=== PATIENT | female | born 2000 | race Hispanic/Latino ===

== ENCOUNTER 2023-09-21 19:40 | Emergency (ER) | payer MEDICAID ==
[~2023-09-21] VITALS: Ht 167.6 cm; Wt 68.0 kg
[2023-09-21 20:56] LABS: BASOPHILS # (AUTO) 0.03 K/uL (0.00-0.20); BASOPHILS % (AUTO) 0.2 % (0.0-5.0); EOSINOPHILS # (AUTO) 0.12 K/uL (0.00-0.70); EOSINOPHILS % (AUTO) 0.7 % (0.0-8.0); HEMATOCRIT 40.9 % (36-48); LYMPHOCYTES # (AUTO) 0.6 K/uL (1.0-4.8); LYMPHOCYTES % (AUTO) 3.6 % (21.0-51.0); MEAN CORPUSCULAR HEMOGLOBIN 30.6 pg (27.0-33.0); MEAN CORPUSCULAR HGB CONC 33.5 g/dL (32.0-36.0); MEAN CORPUSCULAR VOLUME 91.3 fL (80-100); MONOCYTES # (AUTO) 0.3 K/uL (0.1-1.0); MONOCYTES % (AUTO) 1.7 % (3.0-13.0); NEUTROPHILS # (AUTO) 16.7 K/uL (1.8-7.7); NEUTROPHILS % (AUTO) 93.2 % (40.0-77.0); PLATELET COUNT (AUTO) 337 K/uL (130-400); RED BLOOD CELL COUNT(AUTO) 4.48 MIL/uL (4.00-5.50); RED CELL DISTRIBUTION WIDTH 12.6 % (11.0-15.5); WHITE BLOOD COUNT (AUTO) 17.9 K/uL (4.8-10.8)
[2023-09-21 20:59] LABS: APPEARANCE,URINE CLEAR (CLEAR); BILIRUBIN,URINE NEGATIVE (NEGATIVE); COLOR,URINE LIGHT-YELLOW (YELLOW); GLUCOSE, URINE (UA) NEGATIVE (NEGATIVE); KETONES,URINE NEGATIVE (NEGATIVE); LEUKOCYTE ESTERASE ,URINE NEGATIVE Leu/uL (NEGATIVE); NITRATE,URINE NEGATIVE (NEGATIVE); OCCULT BLOOD,URINE NEGATIVE (NEGATIVE); PH,URINE 7.5 (5.0-8.0); PROTEIN,URINE NEGATIVE (NEGATIVE); UROBILINOGEN,URINE 0.2 mg/dL (0.2-1.0)
[2023-09-21 21:04] LABS: CREATININE 0.8 mg/dL (0.5-1.0); POTASSIUM 3.4 mmol/L (3.5-5.1)
[2023-09-21 21:04] LABS: ADD UA MICROSCOPIC NO
[2023-09-21 21:13] LABS: WBC MORPHOLOGY CONSISTENT W/DIFF
[2023-09-21 21:14] LABS: BILIRUBIN,TOTAL 1.5 mg/dL (0.2-1.0)
[2023-09-21] MEDS: MORPHINE 2 MG SYG IM ONE (21:14)
[2023-09-21] MEDS: ONDANSETRON 4MG INJ IVP ONE (22:31)
[2023-09-21] MEDS: MORPHINE 2 MG SYG IVP ONE (22:31)
[2023-09-21] MEDS ORDERED: IOHEXOL 350 MG/ML 100ML INFUS..BTL IV ONE (22:33)
[2023-09-21] MEDS ORDERED: IBUP-1493 PO (23:46)
[2023-09-21] MEDS ORDERED: DICY20TA2 PO (23:46)
[2023-09-21] MEDS ORDERED: ONDA-104 PO (23:47)
[2023-09-21] MEDS ORDERED: AMOX1TAB16 PO (23:50)
[2023-09-22] MEDS ORDERED: ACETAMINOPHEN 325 MG TAB PO ONE
[2023-09-22 00:55] VITALS: BP 104/64; PULSE 80; RESP 18; O2SAT 98
== END 2023-09-22 00:57 | disposition home or self-care (01) ==
LOC: EDH 19:40
DX: K52.9 Noninfective gastroenteritis and colitis, unspecified (principal); R10.2 Pelvic and perineal pain
CPT/HCPCS: 99285; 74177; 96374; 76856; 96375; 80053; 84703; 84702; 85025; 86850; 86900; 86901; 81003; 36415; 96372; J2270 ×2; J2405; Q9967